=== PATIENT | female | born 1945 | race Caucasian/White ===

== ENCOUNTER 2025-02-14 19:02 | Outpatient (REF) | payer MEDICARE, SELFPAY ==
[2025-02-14 20:23] LABS: Glucose 250 mg/dL (Negative)
[2025-02-14 20:30] LABS: WBC >50 HPF (0-5)
== END 2025-02-14 19:03 | disposition home or self-care (01) ==
LOC: LBN 19:02
PROVIDERS: Visit Provider Family Medicine
DX: R30.0 Dysuria (principal)
CPT/HCPCS: 87077; 81003; 81015; 87086; 87186